=== PATIENT | male | born 1995 | race Two or more races ===

== ENCOUNTER 2017-07-11 03:06 | Inpatient (IN) | payer BC ==
[2017-07-11] MEDS ORDERED: Sodium Chloride 0.9% 1,000 ML IV ONE ×2 (03:36→04:53)
[2017-07-11 04:17] LABS: CHLORIDE,CL 102 mmol/L (101-111); SODIUM,NA 138 mmol/L (135-145)
--- NOTE | 2017-07-11 04:49 | EDM.PDOC ---
ED HPI GENERAL MEDICAL PROBLEM - General Chief Complaint: Fever Stated Complaint: FEVER [id number] Time Seen by Provider: 07/11/17 04:00 Source of Information: Reports: Patient History Limitations: Reports: No Limitations - History of Present Illness INITIAL COMMENTS - FREE TEXT/NARRATIVE: This 22 yo male patient reports to the ED with a 2 day history of fever, not feeling well, a headache and low back pain. The patient reports he took ibuprofen about 30 minutes prior to coming to the ED. The patient reports he has a history of elevated liver functions. 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 [No Known Home Meds] 07/11/17 [History] Past Medical History - Past Health History Medical/Surgical History: Denies Medical/Surgical History Social & Family History - Family History Family Medical History: Noncontributory - Tobacco Use Smoking Status *Q: Never Smoker - Caffeine Use Caffeine Use: Reports: Coffee, Soda - Recreational Drug Use Recreational Drug Use: No ED ROS GENERAL - Review of Systems Review Of Systems: ROS reveals no pertinent complaints other than HPI. ED EXAM, GENERAL - Physical Exam Exam: See Below Exam Limited By: No Limitations General Appearance: Alert, WD/WN, Moderate Distress Eye Exam: Bilateral Eye: EOMI, Normal Inspection, PERRL Ears: Normal External Exam, Normal Canal, Hearing Grossly Normal, Normal TMs Nose: Normal Inspection, Normal Mucosa, No Blood Throat/Mouth: Normal Inspection, Normal Lips, Normal Teeth, Normal Gums, Normal Oropharynx, Normal Voice, No Airway Compromise Head: Atraumatic, Normocephalic Neck: Normal Inspection, Supple, Non-Tender, Full Range of Motion Respiratory/Chest: No Respiratory Distress, Lungs Clear, Normal Breath Sounds, No Accessory Muscle Use, Chest Non-Tender Cardiovascular: Normal Peripheral Pulses, Regular Rate, Rhythm, No Edema, No Gallop, No JVD, No Murmur, No Rub GI/Abdominal: Normal Bowel Sounds, Soft, Non-Tender, No Organomegaly, No Distention, No Abnormal Bruit, No Mass (Male) Exam: Deferred Rectal (Males) Exam: Deferred Back Exam: Paraspinal Tenderness Extremities: Normal Inspection, Normal Range of Motion, Non-Tender, Normal Capillary Refill, No Pedal Edema Neurological: Alert, Oriented, CN II-XII Intact, Normal Cognition, Normal Gait, Normal Reflexes, No Motor/Sensory Deficits Psychiatric: Normal Affect, Normal Mood Skin Exam: Warm, Dry, Intact, Normal Color, No Rash Lymphatic: No Adenopathy Course - Vital Signs Last Recorded V/S: Last Vital Signs Temp 38.1 C 07/11/17 03:12 Pulse 117 H 07/11/17 03:12 Resp 18 07/11/17 03:12 BP 108/80 07/11/17 03:12 Pulse Ox 97 07/11/17 03:12 - Orders/Labs/Meds Orders: Active Orders 24 hr Category Date Time Status CHLAMYDIA TRACHOMATIS/GC AMPLF Urgent Lab 07/11/17 03:37 Received CULTURE STREP A CONFIRMATION [RM] Stat Lab 07/11/17 03:42 Results STREP SCRN A RAPID W CULT CONF [RM] Stat Lab 07/11/17 03:42 Results [place] VIRUS IGM [REF] Urgent Lab 07/11/17 03:45 Received Labs: Laboratory Tests 07/11/17 07/11/17 07/11/17 Range/Units 03:37 03:45 03:45 WBC 7.7 (5.0-10.0) 10^3/uL RBC 4.93 (4.6-6.2) 10^6/uL Hgb 14.4 (14.0-18.0) g/dL Hct 41.8 (40.0-54.0) % MCV 84.8 (80-100) fL MCH 29.2 (27.0-34.0) pg MCHC 34.4 (33.0-35.0) g/dL Plt Count 128 L (150-450) 10^3/uL Neut % (Auto) 36.4 L (42.2-75.2) % Lymph % (Auto) 46.0 (20.5-50.1) % [place] % (Auto) 13.8 H (2-8) % Eos % (Auto) 2.8 (1.0-3.0) % Baso % (Auto) 1.0 (0.0-1.0) % Sodium 138 (135-145) mmol/L Potassium 4.0 (3.6-5.0) mmol/L Chloride 102 (101-111) mmol/L Carbon Dioxide 24.0 (21.0-31.0) mmol/L Anion Gap 16.0 BUN 9 (7-18) mg/dL Creatinine 0.9 (0.6-1.3) mg/dL Est Cr Clr Drug Dosing 123.90 mL/min Estimated GFR (MDRD) > 60 BUN/Creatinine Ratio 10.00 Glucose 135 H (74-105) mg/dL Calcium 8.7 (8.4-10.2) mg/dl Total Bilirubin 1.4 H (0.2-1.0) mg/dL AST 666 H (10-42) IU/L ALT 512 H (10-60) IU/L Alkaline Phosphatase 115 (42-121) IU/L Total Protein 7.1 (6.7-8.2) g/dl Albumin 4.2 (3.2-5.5) g/dl Globulin 2.9 Albumin/Globulin Ratio 1.45 Urine Color Yellow (YELLOW) Urine Appearance Clear (CLEAR) Urine pH 8.5 (5.0-9.0) Ur Specific [place] 1.015 (1.005-1.030) Urine Protein 100 H (NEGATIVE) Urine Glucose (UA) Negative (NEGATIVE) Urine Ketones Trace H (NEGATIVE) Urine Occult Blood Negative (NEGATIVE) Urine Nitrite Negative (NEGATIVE) Urine Bilirubin Small H (NEGATIVE) Urine Urobilinogen >=8.0 H (0.2-1.0) mg/dL Ur Leukocyte Esterase Negative (NEGATIVE) Urine RBC 0-5 /HPF Urine WBC 0-5 (0-5/HPF) /HPF Ur Epithelial Cells Few /HPF Amorphous Sediment Few (0/HPF) /HPF Urine Bacteria Moderate H (0-FEW/HPF) /HPF Urine Mucus Moderate H /LPF Monoscreen Positive Meds: Medications Discontinued Medications Generic Name Dose Route Start Last Admin Trade Name Freq PRN Reason Stop Dose Admin Sodium Chloride 1,000 mls @ 999 mls/hr 07/11/17 03:36 07/11/17 03:55 Normal Saline IV 07/11/17 04:36 999 mls/hr .BOLUS ONE Administration Departure - Departure Time of Disposition: 04:50 Disposition: Admitted As Inpatient 66 Condition: Fair Clinical Impression: Mononucleosis syndrome - Discharge Information Instructions: Infectious Mononucleosis Care Plan Goals: Discussed the examination, history, lab and treatment with Dr. Bragg. Dr. Bragg accepted the patient for continued evaluation and further management. - My Orders Last 24 Hours: My Active Orders 07/11/17 03:37 CHLAMYDIA TRACHOMATIS/GC AMPLF Urgent 07/11/17 03:42 CULTURE STREP A CONFIRMATION [RM] Stat STREP SCRN A RAPID W CULT CONF [RM] Stat 07/11/17 03:45 [place] VIRUS IGM [REF] Urgent - Assessment/Plan Last 24 Hours: My Active Orders 07/11/17 03:37 CHLAMYDIA TRACHOMATIS/GC AMPLF Urgent 07/11/17 03:42 CULTURE STREP A CONFIRMATION [RM] Stat STREP SCRN A RAPID W CULT CONF [RM] Stat 07/11/17 03:45 [place] VIRUS IGM [REF] Urgent
[2017-07-11] MEDS ORDERED: Morphine 2 MG/ML Syringe IVPUSH ONE (04:53)
[2017-07-11] MEDS ORDERED: methylPREDNISolone Sodium Succinate 125 MG/2 ML SDV IVPUSH ONE (04:53)
[2017-07-11] MEDS ORDERED: Ondansetron 4 MG/2 ML SDV IVPUSH PRN (08:26)
[2017-07-11] MEDS ORDERED: Polyethylene Glycol 3350 Powder 17 GM Packet PO PRN (08:26)
[2017-07-11] MEDS ORDERED: Zolpidem 5 MG Tab PO PRN (08:26)
[2017-07-11] MEDS: Sodium Chloride 0.9% 1,000 ML IV SCH ×2 (09:47→19:37)
[2017-07-11] MEDS: Morphine 2 MG/ML Syringe IVPUSH PRN ×2 (09:47→17:18)
[2017-07-11] MEDS: Ketorolac 30 MG/ML SDV IVPUSH PRN ×2 (12:47→20:44)
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
[2017-07-11] MEDS: methylPREDNISolone Sodium Succinate 125 MG/2 ML SDV IVPUSH SCH (17:08)
[2017-07-12] MEDS: Morphine 2 MG/ML Syringe IVPUSH PRN ×2 (02:52→08:35)
[2017-07-12] MEDS: methylPREDNISolone Sodium Succinate 125 MG/2 ML SDV IVPUSH SCH ×2 (05:20→17:36)
[2017-07-12 07:03] LABS: CHLORIDE,CL 106 mmol/L (101-111); SODIUM,NA 140 mmol/L (135-145)
[2017-07-12] MEDS: Sodium Chloride 0.9% 1,000 ML IV SCH (07:17)
[2017-07-12] MEDS: Ketorolac 30 MG/ML SDV IVPUSH PRN (07:33)
--- NOTE | 2017-07-12 11:17 | PCM.PN ---
- General Info Admission Dx/Problem (Free Text): Admission Diagnosis/Problem Admission Diagnosis/Problem Mononucleosis syndrome Subjective Update: He is feeling better today, No nausea or vomiting, appetite is good. No abdominal pain, No diarrhea, flank pain ,chest pain or shortness of breath. He denied cough or any sputum production Functional Status: Reports: Pain Controlled, Tolerating Diet, Ambulating, Urinating - Review of Systems General: Reports: Appetite (good). Denies: Fever, Chills HEENT: Denies: Headaches, Post Nasal Drip, Sinus Congestion, Sore Throat, Visual Changes Pulmonary: Denies: Shortness of Breath, Pleuritic Chest Pain, Cough, Wheezing Cardiovascular: Denies: Chest Pain, Dyspnea on Exertion, Lightheadedness Gastrointestinal: Denies: Abdominal Pain, Diarrhea, Nausea, Vomiting Genitourinary: Denies: Dysuria, Frequency, Burning, Flank Pain Musculoskeletal: Denies: Neck Pain, Shoulder Pain, Back Pain Skin: Denies: Jaundice, Dryness, Bruising, Pruritis, Rash Neurological: Denies: Headache, Tingling, Tremors Psychiatric: Reports: No Symptoms - Patient Data Vitals - Most Recent: Last Vital Signs Temp 36.3 C 07/12/17 07:00 Pulse 79 07/12/17 07:00 Resp 20 07/12/17 07:00 BP 98/45 L 07/12/17 07:00 Pulse Ox 98 07/12/17 07:00 Weight - Most Recent: 68.765 kg I&O - Last 24 Hours: Intake & Output 07/11/17 07/12/17 07/12/17 22:59 06:59 14:59 Intake Total 978 901 Balance 978 901 Lab Results Last 24 Hours: Laboratory Results - last 24 hr 07/12/17 07/12/17 07/12/17 Range/Units 06:20 06:20 06:20 WBC 10.8 H (5.0-10.0) 10^3/uL RBC 4.43 L (4.6-6.2) 10^6/uL Hgb 12.9 L (14.0-18.0) g/dL Hct 37.7 L (40.0-54.0) % MCV 85.1 (80-100) fL MCH 29.1 (27.0-34.0) pg MCHC 34.2 (33.0-35.0) g/dL Plt Count 135 L (150-450) 10^3/uL Neut % (Auto) 54.0 (42.2-75.2) % Lymph % (Auto) 36.1 (20.5-50.1) % [place] % (Auto) 9.7 H (2-8) % Eos % (Auto) 0.0 L (1.0-3.0) % Baso % (Auto) 0.2 (0.0-1.0) % Sodium 140 (135-145) mmol/L Potassium 4.3 (3.6-5.0) mmol/L Chloride 106 (101-111) mmol/L Carbon Dioxide 24.0 (21.0-31.0) mmol/L Anion Gap 14.3 BUN 6 L (7-18) mg/dL Creatinine 0.6 (0.6-1.3) mg/dL Est Cr Clr Drug Dosing 187.83 mL/min Estimated GFR (MDRD) > 60 BUN/Creatinine Ratio 10.00 Glucose 132 H (74-105) mg/dL Lactic Acid 1.2 (0.5-2.2) mmol/L Calcium 8.2 L (8.4-10.2) mg/dl Total Bilirubin 0.8 (0.2-1.0) mg/dL AST 193 H (10-42) IU/L ALT 426 H (10-60) IU/L Alkaline Phosphatase 95 (42-121) IU/L Total Protein 6.4 L (6.7-8.2) g/dl Albumin 3.5 (3.2-5.5) g/dl Globulin 2.9 Albumin/Globulin Ratio 1.21 Colt Results Last 24 Hours: Microbiology 07/11/17 09:02 Aerobic Blood Culture - Preliminary Blood - Venous - Lab Draw NO GROWTH AFTER 1 DAY Anaerobic Blood Culture - Preliminary NO GROWTH AFTER 1 DAY 07/11/17 09:00 Aerobic Blood Culture - Preliminary Blood - Venous NO GROWTH AFTER 1 DAY Anaerobic Blood Culture - Preliminary NO GROWTH AFTER 1 DAY Med Orders - Current: Current Medications Ketorolac Tromethamine (Toradol) 30 mg IVPUSH Q6H PRN PRN Reason: Pain (Moderate 4-10), fever Last Admin: 07/12/17 07:33 Dose: 30 mg Methylprednisolone Sodium Succinate (Solu-Medrol) 125 mg IVPUSH Q12H [facility] Last Admin: 07/12/17 05:20 Dose: 125 mg Morphine Sulfate (Morphine) 2 mg IVPUSH Q4H PRN PRN Reason: Pain (severe 7-10) Last Admin: 07/12/17 08:35 Dose: 2 mg Ondansetron HCl (Zofran) 4 mg IVPUSH Q6H PRN PRN Reason: Nausea/Vomiting Polyethylene Glycol (Miralax) 17 gm PO DAILY PRN PRN Reason: Constipation Zolpidem Tartrate (Ambien) 5 mg PO BEDTIME PRN PRN Reason: Sleep Discontinued Medications Sodium Chloride (Normal Saline) 1,000 mls @ 999 mls/hr IV .BOLUS ONE Stop: 07/11/17 04:36 Last Admin: 07/11/17 03:55 Dose: 999 mls/hr Sodium Chloride (Normal Saline) 1,000 mls @ 999 mls/hr IV .BOLUS ONE Stop: 07/11/17 05:53 Last Admin: 07/11/17 05:00 Dose: 999 mls/hr Sodium Chloride (Normal Saline) 1,000 mls @ 100 mls/hr IV ASDIRECTED [facility] Stop: 07/12/17 08:31 Last Admin: 07/12/17 07:17 Dose: 100 mls/hr Methylprednisolone Sodium Succinate (Solu-Medrol) 125 mg IVPUSH ONETIME ONE Stop: 07/11/17 04:54 Last Admin: 07/11/17 05:04 Dose: 125 mg Morphine Sulfate (Morphine) 2 mg IVPUSH ONETIME ONE Stop: 07/11/17 04:54 Last Admin: 07/11/17 05:00 Dose: 2 mg - Exam Quality Assessment: DVT Prophylaxis. No: Supplemental Oxygen, Urine Catheter General: Alert, Oriented, Cooperative, No Acute Distress HEENT: Pupils Equal, Mucous Membr. Moist/[place] Neck: Supple, No JVD Lungs: Clear to Auscultation, Normal Respiratory Effort Cardiovascular: Regular Rate, Regular Rhythm GI/Abdominal Exam: Normal Bowel Sounds, Non-Tender, No Distention. No: Guarding , Rigid, Rebound, Hepatomegaly, Splenomegaly (Male) Exam: Deferred Back Exam: Normal Inspection, Full Range of Motion. No: CVA Tenderness (R) Extremities: Normal Inspection, No Pedal Edema Skin: Warm, Dry, Intact Neurological: No New Focal Deficit Psy/Mental Status: Alert, Normal Affect, Normal Mood - Problem List Review Problem List Initiated/Reviewed/Updated: Yes - Plan Plan:: Assessment and plan 22-year-old male without significant past medical history presented with viral illness symptoms consistent with mononucleosis. Patient felt better after fluid resuscitation and IV steroids. Now his headache is resolved and today he is felling much better. Probable sepsis, most likely viral from mononucleosis Patient has received fluid druze and encouraged him to eat and drink well Will stop IV fluid Rapid influenza and rapid strep test are negative 2 sets of blood cultures done, no growth yet Acute hepatitis panel, chlamydia and gonorrhea, West Nile virus IgM ordered Mononucleosis syndrome Swisher test is positive Supportive treatment Patient received IV fluid Will continue Solu-Medrol 125 mg twice a day. This can be stopped when patient started feeling better in the next 2-3 days Ultrasound of the spleen reported mild prominence of the spleen measuring 11.5 x 4.6 x 6.6 cm Elevated Transaminitis, possible hepatitis from mononucleosis - Acute hepatitis panel ordered as well - Continue to Monitor liver enzymes, it's improving - No reported liver enlargement on ultrasound LUCINDA faulkner and SCDs for DVT prophylaxis Start Protonix for GI prophylaxis ( on steroid) He is full code
[2017-07-12] MEDS: Pantoprazole 40 MG Tab.CR PO SCH (12:23)
[2017-07-12] MEDS ORDERED: traMADol 50 MG Tab PO PRN (16:38)
[2017-07-13] MEDS: methylPREDNISolone Sodium Succinate 125 MG/2 ML SDV IVPUSH SCH (05:26)
[2017-07-13] MEDS: Pantoprazole 40 MG Tab.CR PO SCH (05:26)
[2017-07-13 07:06] LABS: CHLORIDE,CL 105 mmol/L (101-111); SODIUM,NA 140 mmol/L (135-145)
--- NOTE | 2017-07-13 12:27 | PCM.PN ---
- General Info Date of Service: 07/13/17 Admission Dx/Problem (Free Text): Admission Diagnosis/Problem Admission Diagnosis/Problem Mononucleosis syndrome Subjective Update: He is feeling better today, No nausea or vomiting, appetite is good. No abdominal pain, No diarrhea, flank pain ,chest pain or shortness of breath. He denied cough or any sputum production Functional Status: Reports: Pain Controlled, Tolerating Diet, Ambulating, Urinating - Review of Systems General: Reports: Appetite (good). Denies: Fever, Chills HEENT: Denies: Headaches, Sinus Congestion, Sore Throat, Visual Changes Pulmonary: Denies: Shortness of Breath, Pleuritic Chest Pain, Cough, Sputum, Wheezing Cardiovascular: Denies: Chest Pain, Dyspnea on Exertion, Edema, Lightheadedness Gastrointestinal: Denies: Abdominal Pain, Diarrhea, Nausea, Vomiting Genitourinary: Denies: Dysuria, Frequency, Burning, Flank Pain Musculoskeletal: Denies: Neck Pain, Back Pain, Leg Pain, Joint Pain Skin: Denies: Jaundice, Bruising, Pruritis, Rash Neurological: Reports: No Symptoms Psychiatric: Reports: No Symptoms - Patient Data Vitals - Most Recent: Last Vital Signs Temp 36.9 C 07/13/17 10:37 Pulse 75 07/13/17 10:37 Resp 20 07/13/17 10:37 BP 125/65 07/13/17 10:37 Pulse Ox 98 07/13/17 10:37 Weight - Most Recent: 68.765 kg I&O - Last 24 Hours: Intake & Output 07/12/17 07/13/17 07/13/17 22:59 06:59 14:59 Intake Total 1991 500 400 Balance 1991 500 400 Lab Results Last 24 Hours: Laboratory Results - last 24 hr 07/13/17 Range/Units 05:55 Sodium 140 (135-145) mmol/L Potassium 4.2 (3.6-5.0) mmol/L Chloride 105 (101-111) mmol/L Carbon Dioxide 26.0 (21.0-31.0) mmol/L Anion Gap 13.2 BUN 8 (7-18) mg/dL Creatinine 0.6 (0.6-1.3) mg/dL Est Cr Clr Drug Dosing 187.83 mL/min Estimated GFR (MDRD) > 60 BUN/Creatinine Ratio 13.33 Glucose 133 H (74-105) mg/dL Calcium 8.5 (8.4-10.2) mg/dl Total Bilirubin 0.5 (0.2-1.0) mg/dL AST 87 H (10-42) IU/L ALT 342 H (10-60) IU/L Alkaline Phosphatase 85 (42-121) IU/L Total Protein 6.7 (6.7-8.2) g/dl Albumin 3.5 (3.2-5.5) g/dl Globulin 3.2 Albumin/Globulin Ratio 1.09 Colt Results Last 24 Hours: Microbiology 07/11/17 09:02 Aerobic Blood Culture - Preliminary Blood - Venous - Lab Draw NO GROWTH AFTER 2 DAYS Anaerobic Blood Culture - Preliminary NO GROWTH AFTER 2 DAYS 07/11/17 09:00 Aerobic Blood Culture - Preliminary Blood - Venous NO GROWTH AFTER 2 DAYS Anaerobic Blood Culture - Preliminary NO GROWTH AFTER 2 DAYS Med Orders - Current: Current Medications Methylprednisolone Sodium Succinate (Solu-Medrol) 40 mg IVPUSH Q12H REBECA Morphine Sulfate (Morphine) 2 mg IVPUSH Q4H PRN PRN Reason: Pain (severe 7-10) Last Admin: 07/12/17 08:35 Dose: 2 mg Ondansetron HCl (Zofran) 4 mg IVPUSH Q6H PRN PRN Reason: Nausea/Vomiting Pantoprazole Sodium (Protonix) 40 mg PO ACBREAKFAST REBECA Last Admin: 07/13/17 05:26 Dose: 40 mg Polyethylene Glycol (Miralax) 17 gm PO DAILY PRN PRN Reason: Constipation Tramadol HCl (Ultram) 50 mg PO Q4H PRN PRN Reason: Pain Last Admin: 07/12/17 21:16 Dose: 50 mg Zolpidem Tartrate (Ambien) 5 mg PO BEDTIME PRN PRN Reason: Sleep Discontinued Medications Sodium Chloride (Normal Saline) 1,000 mls @ 999 mls/hr IV .BOLUS ONE Stop: 07/11/17 04:36 Last Admin: 07/11/17 03:55 Dose: 999 mls/hr Sodium Chloride (Normal Saline) 1,000 mls @ 999 mls/hr IV .BOLUS ONE Stop: 07/11/17 05:53 Last Admin: 07/11/17 05:00 Dose: 999 mls/hr Sodium Chloride (Normal Saline) 1,000 mls @ 100 mls/hr IV ASDIRECTED [facility] Stop: 07/12/17 08:31 Last Admin: 07/12/17 07:17 Dose: 100 mls/hr Ketorolac Tromethamine (Toradol) 30 mg IVPUSH Q6H PRN PRN Reason: Pain (Moderate 4-10), fever Last Admin: 07/12/17 07:33 Dose: 30 mg Methylprednisolone Sodium Succinate (Solu-Medrol) 125 mg IVPUSH ONETIME ONE Stop: 07/11/17 04:54 Last Admin: 07/11/17 05:04 Dose: 125 mg Methylprednisolone Sodium Succinate (Solu-Medrol) 125 mg IVPUSH Q12H [facility] Last Admin: 07/13/17 05:26 Dose: 125 mg Morphine Sulfate (Morphine) 2 mg IVPUSH ONETIME ONE Stop: 07/11/17 04:54 Last Admin: 07/11/17 05:00 Dose: 2 mg - Exam Quality Assessment: DVT Prophylaxis. No: Supplemental Oxygen, Urine Catheter General: Alert, Oriented, Cooperative, No Acute Distress HEENT: Pupils Equal, EOMI, Mucous Membr. Moist/[place] Neck: Supple. No: No Thyromegaly, Lymphadenopathy Lungs: Clear to Auscultation, Normal Respiratory Effort. No: Crackles, Wheezing Cardiovascular: Regular Rate, Regular Rhythm, No Murmurs GI/Abdominal Exam: Normal Bowel Sounds, Soft, Non-Tender, No Organomegaly, No Distention. No: Guarding, Rebound (Male) Exam: Deferred Back Exam: Normal Inspection, Full Range of Motion Extremities: Normal Inspection, Normal Range of Motion, No Pedal Edema Skin: Warm, Dry, Intact Neurological: No New Focal Deficit Psy/Mental Status: Alert, Normal Affect, Normal Mood - Problem List Review Problem List Initiated/Reviewed/Updated: Yes - My Orders Last 24 Hours: My Active Orders 07/12/17 11:30 Pantoprazole [ProTONIX] 40 mg PO ACBREAKFAST 07/12/17 16:38 traMADol [Ultram] 50 mg PO Q4H PRN 07/13/17 17:00 methylPREDNISolone Sod Succ [Solu-MEDROL] 40 mg IVPUSH Q12H - Plan Plan:: Assessment and plan 22-year-old male without significant past medical history presented with viral illness symptoms consistent with mononucleosis. Patient felt better after fluid resuscitation and IV steroids. Now his headache is resolved and today he is felling much better. Probable sepsis, most likely viral from mononucleosis Patient has received fluid synagogue and encouraged him to eat and drink well Rapid influenza and rapid strep test are negative 2 sets of blood cultures done, no growth yet Acute hepatitis panel, chlamydia and gonorrhea, West Nile virus IgM ordered ( not available yet) -Will decrease Slumedrol to 40 mg IV q12 hrs [ was at 125 mg IV q12 hrs) -He needs prednisone tapering and likely can go home with oral prednisone tapering Mononucleosis syndrome [place] test is positive Supportive treatment Patient received IV fluid Will Decrease Solu-Medrol to 40 mg IV q12 hrs [ was at 125 mg twice a day.] =Will need prednisone tapering and can go home tomorrow with oral prednisone tapering Ultrasound of the spleen reported mild prominence of the spleen measuring 11.5 x 4.6 x 6.6 cm Elevated Transaminitis, possible hepatitis from mononucleosis - Acute hepatitis panel ordered as well - Continue to Monitor liver enzymes, it's improving - No reported liver enlargement on ultrasound LUCINDA faulkner and SCDs for DVT prophylaxis - Continue Protonix for GI prophylaxis ( on steroid) He is full code
[2017-07-13] MEDS: methylPREDNISolone Sodium Succinate 40 MG/1 ML SDV IVPUSH SCH (19:48)
[2017-07-14] MEDS: methylPREDNISolone Sodium Succinate 40 MG/1 ML SDV IVPUSH SCH (05:34)
[2017-07-14] MEDS: Pantoprazole 40 MG Tab.CR PO SCH (05:36)
[2017-07-14 07:05] LABS: CHLORIDE,CL 101 mmol/L (101-111); SODIUM,NA 138 mmol/L (135-145)
[2017-07-14 07:27] VITALS: BP 91/49
--- NOTE | 2017-07-21 09:02 | DISCH ---
DISCHARGE DIAGNOSES: 1. Acute infectious mononucleosis syndrome. 2. Mild prominence of the spleen. 3. Mild thrombocytopenia, resolved. 4. Abnormal LFTs, improving. 5. Negative acute hepatitis profile. BRIEF HISTORY OF PRESENT ILLNESS: Edgar Carney is a 22-year-old male, who was seen in clinic on the day prior to admission. He had presented to clinic with fever and back pain. Lab work performed at the clinic, showed a minimal elevation of AST and ALT, and no other abnormalities, and he is basically told to rest and stay well hydrated. That same evening, he felt more ill. He had a temperature of 102. His head hurt with blurry vision. His back hurt. He called and spoke to this physician who reviewed his history. He had no sore throat. He has had hepatitis B shots in the past. He had no other known ill contacts. Further lab work was ordered for the following morning including mononucleosis screening, strep, swab of the throat, and acute hepatitis A, B and C panel. That evening, however, he became more ill. Temperature went up to 103 at home, and he came to the Emergency Department, was evaluated and then admitted. PERTINENT LABS AND X-RAYS: CBC showed a white count of 7.7, hemoglobin and hematocrit of 14 and 41.8 at admission, and 13.8 and 41 at discharge. Platelets were slightly decreased at 128,000 on admission, and had returned to 168,000 prior to discharge. Manual differential showed 27% neutrophils, 16% bands, 45% lymphocytes, 9%, monocytes on admission, and at discharge 45% neutrophils, 2% bands, 42% lymphocytes, and 11% monocytes. Baseline PT was within normal limits. Chemistry showed normal electrolytes. BUN and creatinine were 9 and 0.7 with a GFR of more than 60. Blood sugars were unremarkable. LFTs showed an admission AST of 666, and ALT of 512, and at discharge AST and ALT were 104 and 346 respectively. Total bilirubin was 1.4 on admission, 1.0 at discharge. Alkaline phosphatase was normal. Albumin was normal. C-reactive protein was elevated at 5.0. Urinalysis showed a clear yellow urine with a specific gravity of 1.015. There was an increase in urobilinogen and small amount of urine bilirubin. Microscopic was unremarkable with moderate bacteria and moderate mucus. Serology included urine for GC and chlamydia, which were not detected. Followup cultures for Chlamydia and gonorrhea were also not detected. West Nile IgM antibody was negative. Acute hepatitis profile was nonreactive for A, B, and C. [place] screen was positive. Two sets of blood cultures remain with no growth after 5 days. Rapid strep was negative and confirmation culture was also negative for group A strep. Nasal swabs were collected for influenza A and B and were negative. Urine culture showed mixed urogenital alyson of less than 10,000 CFUs/mL, and no further workup was done. An abdominal ultrasound was performed at the time of admission and showed mild prominence of the spleen which measured 11.5 x 4.6 x 6.6 cm. The liver measured 15.3 cm in sagittal dimension. HOSPITAL COURSE: Edgar was admitted as an acute inpatient with acute mononucleosis syndrome. He was started on IV fluids, normal saline, IV morphine was used for pain. He was given a loading dose of Solu-Medrol and then placed on a Solu-Medrol taper. IV Toradol was later used for pain in addition to the morphine. Review of his clinical data showed adequate fluids. He was voiding. His appetite slowly improved. On the day of discharge, he tolerated 100% of breakfast. Vital signs showed an admission of temperature 100.5. He gradually defervesced and was afebrile. Initial vital signs showed tachycardia with a heart rate of 117, and this also quickly reverted to normal with the administration of IV fluids. On day of discharge, he was lying comfortably in bed. He felt he was ready to be discharged to home. His headache had resolved. His body aches had also more or less resolved. He was feeling fatigued but improved. PHYSICAL EXAMINATION: Vital Signs: Blood pressure was 91/49. Blood pressure the prior evening was 115/67. Pulse 70 and regular, respiratory rate 20, oxygen saturation 100% on room air. He was afebrile. Weight 151 pounds, 9.6 ounces. Height 5 feet 9-1/2 inches. HEENT: Unremarkable. ENT was clear. Sclerae were nonicteric. Conjunctivae were not injected. Mouth showed moist mucous membranes. Neck: There was no cervical adenopathy. No thyromegaly. Chest: Showed clear bilateral breath sounds. Heart: Showed regular rate and rhythm. Abdomen: Soft and nontender to palpation over both the liver and spleen. No guarding. No rebound. No masses. Extremities: Showed no edema. The calves were soft and nontender. Neurologic: He is intact. IMPRESSION: A 22-year-old male presents with fever, tachycardia, and abnormal LFTs with a positive Monospot. He was admitted for acute mononucleosis syndrome. PLAN: Edgar was discharged to home. He will continue on a prednisone taper over the next few days. He should rest, stay well hydrated. Because of the prominence of the liver, we instructed him to avoid any strenuous activity. No heavy lifting. Diet should be usual diet as tolerated. A repeat ultrasound to re-evaluate the spleen with repeat labs will be performed on July 25. We did provide a letter to his employer, the [employer]. Edgar will be taking sick leave for the next week, and will have the repeat ultrasound prior to returning to duty and may still continue on light duty depending on the findings of the ultrasound. He should seek re-evaluation if he once again develops high fever, increasing pain, or any other symptoms of concern. CONDITION AT THE TIME OF DISCHARGE: Improved and stable. CODE STATUS DURING THIS ADMISSION: Full code. [facility] /[id number]
== END 2017-07-14 13:00 | disposition home or self-care (01) | DRG 720 ==
LOC: DL.ED 03:06 → DL.MS 05:02 → UNDOADMIN 05:02 → DL.MS 05:30
PROVIDERS: ADMIT Family Medicine; ATTEND Family Medicine
DX: A41.9 Sepsis, unspecified organism (principal); B27.90 Infectious mononucleosis, unspecified without complication; B19.9 Unspecified viral hepatitis without hepatic coma
CPT/HCPCS: 36415; 76705; 80053; 80074; 81001; 83605; 85025; 85610; 86140; 86308; 86788; 87040; 87081; 87086; 87430; 87491; 87591; 87804; 96361; 96374; 96375; 99284; A9270-GY; J1885; J2270; J2920; J2930; J7030

== ENCOUNTER 2018-01-31 12:41 | Emergency (ER) | payer BC ==
[2018-01-31 12:56] VITALS: BP 121/55
--- NOTE | 2018-01-31 13:57 | EDM.PDOC ---
ED HPI GENERAL MEDICAL PROBLEM - General Chief Complaint: Gastrointestinal Problem Stated Complaint: personal [id number] Time Seen by Provider: 01/31/18 13:45 Source of Information: Reports: Patient History Limitations: Reports: No Limitations - History of Present Illness INITIAL COMMENTS - FREE TEXT/NARRATIVE: This 23 yo male patient reports to the ED due to a loose stool with bright red blood in the stool. The patient reports he has been having very loose bowel movements since he had mono in June. The patient reports he had to have a bowel movement today and noticed that his had blood in the stool. The patient reports no similar symptoms in the past and no history of GI problems. The patient admits to drinking caffeine, energy drinks and chewing tobacco. The patient reports he may be experiencing increased stress due to expecting a baby soon along with stressful work. Onset: Today Duration: Constant Location: Reports: Abdomen Quality: Reports: Other Severity: Mild Improves with: Reports: None Worsens with: Reports: None Associated Symptoms: Reports: Other (diarrhea) - Related Data Allergies Allergy/AdvReac Type Severity Reaction Status Date / Time No Known Allergies Allergy Verified 01/31/18 12:56 Home Meds: Home Meds . [No Known Home Meds] 07/21/17 [History] Past Medical History - Past Health History Medical/Surgical History: Denies Medical/Surgical History HEENT History: Reports: None Cardiovascular History: Reports: None Respiratory History: Reports: None Gastrointestinal History: Reports: None Genitourinary History: Reports: None Musculoskeletal History: Reports: None Neurological History: Reports: None Psychiatric History: Reports: None Endocrine/Metabolic History: Reports: None Hematologic History: Reports: None Immunologic History: Reports: None Oncologic (Cancer) History: Reports: None Dermatologic History: Reports: None - Infectious Disease History Infectious Disease History: Reports: Chicken Pox, Mononucleosis - Past Surgical History Head Surgeries/Procedures: Reports: None Social & Family History - Family History Family Medical History: Noncontributory - Tobacco Use Smoking Status *Q: Never Smoker Years of Tobacco use: 3 Packs/Tins Daily: 0.5 Second Hand Smoke Exposure: No - Caffeine Use Caffeine Use: Reports: Coffee, Energy Drinks - Recreational Drug Use Recreational Drug Use: No ED ROS GENERAL - Review of Systems Review Of Systems: ROS reveals no pertinent complaints other than HPI. ED EXAM, GI/ABD - Physical Exam Exam: See Below Exam Limited By: No Limitations General Appearance: Alert, WD/WN, Moderate Distress Eyes: Bilateral: Normal Appearance, EOMI Ears: Normal External Exam, Normal Canal, Hearing Grossly Normal, Normal TMs Nose: Normal Inspection, Normal Mucosa, No Blood Throat/Mouth: Normal Inspection, Normal Lips, Normal Teeth, Normal Gums, Normal Oropharynx, Normal Voice, No Airway Compromise Head: Atraumatic, Normocephalic Neck: Normal Inspection, Supple, Non-Tender, Full Range of Motion Respiratory/Chest: No Respiratory Distress, Lungs Clear, Normal Breath Sounds, No Accessory Muscle Use, Chest Non-Tender Cardiovascular: Normal Peripheral Pulses, Regular Rate, Rhythm, No Edema, No Gallop, No JVD, No Murmur, No Rub GI/Abdominal Exam: Normal Bowel Sounds, Soft, Non-Tender, No Organomegaly, No Distention, No Abnormal Bruit, No Mass, Pelvis Stable (Male) Exam: Deferred Rectal (Males) Exam: Deferred Back Exam: Normal Inspection, Full Range of Motion, NT Extremities: Normal Inspection, Normal Range of Motion, Non-Tender, Normal Capillary Refill, No Pedal Edema Neurological: Alert, Oriented, CN II-XII Intact, Normal Cognition, Normal Gait, Normal Reflexes, No Motor/Sensory Deficits Psychiatric: Normal Affect, Normal Mood Skin Exam: Warm, Dry, Intact, Normal Color, No Rash Lymphatic: No Adenopathy Course - Vital Signs Last Recorded V/S: Last Vital Signs Temp 36.4 C 01/31/18 12:51 Pulse 70 01/31/18 12:51 Resp 16 01/31/18 12:51 BP 121/55 L 01/31/18 12:51 Pulse Ox 99 01/31/18 12:51 - Orders/Labs/Meds Orders: Active Orders 24 hr Category Date Time Status C DIFFICILE TOXIN BY PCR [MREF] Stat Lab 01/31/18 13:50 Ordered CULTURE STOOL [RM] Stat Lab 01/31/18 13:50 Ordered OVA & PARASITES BY IMMUNOASSAY [MREF] Stat Lab 01/31/18 13:50 Ordered Labs: Laboratory Tests 01/31/18 01/31/18 Range/Units 13:56 13:56 WBC 6.5 (5.0-10.0) 10^3/uL RBC 5.04 (4.6-6.2) 10^6/uL Hgb 14.8 (14.0-18.0) g/dL Hct 42.7 (40.0-54.0) % MCV 84.7 (80-100) fL MCH 29.4 (27.0-34.0) pg MCHC 34.7 (33.0-35.0) g/dL Plt Count 191 (150-450) 10^3/uL Neut % (Auto) 46.4 (42.2-75.2) % Lymph % (Auto) 39.0 (20.5-50.1) % Cecil % (Auto) 10.3 H (2-8) % Eos % (Auto) 3.7 H (1.0-3.0) % Baso % (Auto) 0.6 (0.0-1.0) % Sodium 138 (135-145) mmol/L Potassium 4.0 (3.6-5.0) mmol/L Chloride 102 (101-111) mmol/L Carbon Dioxide 28.0 (21.0-31.0) mmol/L Anion Gap 12.0 BUN 6 L (7-18) mg/dL Creatinine 0.8 (0.6-1.3) mg/dL Est Cr Clr Drug Dosing 143.61 mL/min Estimated GFR (MDRD) > 60 BUN/Creatinine Ratio 7.50 Glucose 87 (74-105) mg/dL Calcium 9.3 (8.4-10.2) mg/dl Total Bilirubin 1.7 H (0.2-1.0) mg/dL AST 28 (10-42) IU/L ALT 28 (10-60) IU/L Alkaline Phosphatase 34 L (42-121) IU/L Total Protein 7.1 (6.7-8.2) g/dl Albumin 4.5 (3.2-5.5) g/dl Globulin 2.6 Albumin/Globulin Ratio 1.73 Departure - Departure Time of Disposition: 14:44 Disposition: Home, Self-Care 01 Condition: Fair Clinical Impression: Gastritis Qualifiers: Gastritis type: unspecified gastritis Chronicity: acute Gastritis bleeding: with bleeding Qualified Code(s): K29.01 - Acute gastritis with bleeding - Discharge Information Instructions: Gastritis, Adult, [id number] Forms: ED Department Discharge Care Plan Goals: The patient was advised of the examination and lab results during the visit. The patient was discharged with a stool collection kit for the patient to collect a stool sample at home. The patient should return the stool sample to the [facility] lab after collection. If the patient has any additional symptoms or concerns, the patient should follow-up with her primary care facility or return to the emergency department. - My Orders Last 24 Hours: My Active Orders 01/31/18 13:50 C DIFFICILE TOXIN BY PCR [MREF] Stat CULTURE STOOL [RM] Stat OVA & PARASITES BY IMMUNOASSAY [MREF] Stat - Assessment/Plan Last 24 Hours: My Active Orders 01/31/18 13:50 C DIFFICILE TOXIN BY PCR [MREF] Stat CULTURE STOOL [RM] Stat OVA & PARASITES BY IMMUNOASSAY [MREF] Stat
[2018-01-31 14:22] LABS: CHLORIDE,CL 102 mmol/L (101-111); SODIUM,NA 138 mmol/L (135-145)
== END 2018-01-31 14:50 | disposition home or self-care (01) ==
LOC: DL.ED 12:41
DX: K29.01 Acute gastritis with bleeding (principal)
CPT/HCPCS: 36415; 80053; 85025; 99283

== ENCOUNTER 2018-12-28 08:06 | Emergency (ER) | payer BC ==
[2018-12-28] MEDS ORDERED: Ondansetron 4 MG/2 ML SDV IV ONE (08:22)
[2018-12-28] MEDS ORDERED: Sodium Chloride 0.9% 1,000 ML IV ONE ×2 (08:22→09:45)
--- NOTE | 2018-12-28 08:32 | EDM.PDOC ---
ED HPI GENERAL MEDICAL PROBLEM - General Chief Complaint: Gastrointestinal Problem Stated Complaint: SICK Time Seen by Provider: 12/28/18 08:27 Source of Information: Reports: Patient History Limitations: Reports: No Limitations - History of Present Illness INITIAL COMMENTS - FREE TEXT/NARRATIVE: woke up this am with vomiting & diarrhoea & upper abd pain. kids were sick but fine now . Left Upper Abdomen Pain Score (Numeric/FACES): 10 - Related Data Allergies Allergy/AdvReac Type Severity Reaction Status Date / Time No Known Allergies Allergy Verified 12/28/18 08:12 Home Meds: Home Meds . [No Known Home Meds] 07/21/17 [History] Past Medical History - Past Health History Medical/Surgical History: Denies Medical/Surgical History HEENT History: Reports: None Cardiovascular History: Reports: None Respiratory History: Reports: None Gastrointestinal History: Reports: None Other Gastrointestinal History: inflammed spleen Genitourinary History: Reports: None Musculoskeletal History: Reports: None Neurological History: Reports: None Psychiatric History: Reports: None Endocrine/Metabolic History: Reports: None Hematologic History: Reports: None Immunologic History: Reports: None Oncologic (Cancer) History: Reports: None Dermatologic History: Reports: None - Infectious Disease History Infectious Disease History: Reports: Chicken Pox, Mononucleosis - Past Surgical History Head Surgeries/Procedures: Reports: None Social & Family History - Family History Family Medical History: Noncontributory - Tobacco Use Smoking Status *Q: Never Smoker Second Hand Smoke Exposure: No - Caffeine Use Caffeine Use: Reports: Coffee, Energy Drinks - Recreational Drug Use Recreational Drug Use: No ED ROS GENERAL - Review of Systems Review Of Systems: ROS reveals no pertinent complaints other than HPI. ED EXAM, GI/ABD - Physical Exam Exam: See Below Exam Limited By: No Limitations General Appearance: Alert, WD/WN, Mild Distress, Active Emesis Ears: Hearing Grossly Normal Throat/Mouth: Normal Voice, No Airway Compromise Head: Atraumatic Neck: Non-Tender, Full Range of Motion Respiratory/Chest: No Respiratory Distress Cardiovascular: Regular Rate, Rhythm GI/Abdominal Exam: Tender, Other (epiG region, hyper BS). No: Distended, Guarding, Rigid, Rebound Neurological: Alert, Oriented, Normal Cognition, Normal Gait, No Motor/Sensory Deficits Psychiatric: Flat Affect, Tearful Skin Exam: Warm, Dry, Normal Color Lymphatic: No Adenopathy Course - Vital Signs Last Recorded V/S: Last Vital Signs Temp 37.4 C 12/28/18 08:09 Pulse 110 H 12/28/18 08:09 Resp 18 12/28/18 08:09 BP 117/73 12/28/18 08:09 Pulse Ox 95 12/28/18 08:09 - Orders/Labs/Meds Orders: Active Orders 24 hr Category Date Time Status CULTURE BLOOD [BC] Stat Lab 12/28/18 08:19 Received Sodium Chloride 0.9% [Normal Saline] 1,000 ml Med 12/28/18 09:45 Active IV .BOLUS Medication Orders Sodium Chloride (Normal Saline) 1,000 mls @ 999 mls/hr IV .BOLUS ONE Stop: 12/28/18 10:45 Last Admin: 12/28/18 09:51 Dose: 999 mls/hr Labs: Laboratory Tests 12/28/18 12/28/18 12/28/18 Range/Units 08:19 08:19 08:19 WBC 11.0 H (5.0-10.0) 10^3/uL RBC 5.55 (4.6-6.2) 10^6/uL Hgb 16.1 (14.0-18.0) g/dL Hct 46.6 (40.0-54.0) % MCV 84.0 (80-100) fL MCH 29.0 (27.0-34.0) pg MCHC 34.5 (33.0-35.0) g/dL Plt Count 207 (150-450) 10^3/uL Neut % (Auto) 85.2 H (42.2-75.2) % Lymph % (Auto) 6.2 L (20.5-50.1) % Dane % (Auto) 6.7 (2-8) % Eos % (Auto) 1.7 (1.0-3.0) % Baso % (Auto) 0.2 (0.0-1.0) % Sodium 138 (135-145) mmol/L Potassium 3.9 (3.6-5.0) mmol/L Chloride 103 (101-111) mmol/L Carbon Dioxide 24.0 (21.0-31.0) mmol/L Anion Gap 14.9 BUN 13 (7-18) mg/dL Creatinine 0.9 (0.6-1.3) mg/dL Est Cr Clr Drug Dosing 127.65 mL/min Estimated GFR (MDRD) > 60 BUN/Creatinine Ratio 14.44 Glucose 114 H (74-105) mg/dL Lactic Acid 0.8 (0.5-2.2) mmol/L Calcium 8.7 (8.4-10.2) mg/dl Total Bilirubin 1.6 H (0.2-1.0) mg/dL AST 53 H (10-42) IU/L ALT 80 H (10-60) IU/L Alkaline Phosphatase 58 (42-121) IU/L Total Protein 7.9 (6.7-8.2) g/dl Albumin 4.8 (3.2-5.5) g/dl Globulin 3.1 Albumin/Globulin Ratio 1.55 Meds: Medications Generic Name Dose Route Start Last Admin Trade Name Freq PRN Reason Stop Dose Admin Sodium Chloride 1,000 mls @ 999 mls/hr 12/28/18 09:45 12/28/18 09:51 Normal Saline IV 12/28/18 10:45 999 mls/hr .BOLUS ONE Administration Discontinued Medications Generic Name Dose Route Start Last Admin Trade Name Freq PRN Reason Stop Dose Admin Sodium Chloride 1,000 mls @ 999 mls/hr 12/28/18 08:22 12/28/18 08:28 Normal Saline IV 12/28/18 09:22 999 mls/hr .BOLUS ONE Administration Iopamidol 75 ml 12/28/18 08:42 12/28/18 08:50 Isovue-300 (61%) IVPUSH 12/28/18 08:43 75 ml ONETIME ONE Administration Ketorolac Tromethamine 30 mg 12/28/18 09:45 12/28/18 09:51 Toradol IVPUSH 12/28/18 09:46 30 mg ONETIME ONE Administration Ondansetron HCl 4 mg 12/28/18 08:22 12/28/18 08:28 Zofran IV 12/28/18 08:23 4 mg ONETIME ONE Administration - Re-Assessments/Exams Free Text/Narrative Re-Assessment/Exam: 12/28/18 09:48 results discussed wiht pt who is aware of elevated LFT and spleenomeg, denies xs etoh, states had mono long time ago and were told of his abn labs. 12/28/18 10:21 re-exam; s/p toradol sleeping arousable no c/o Departure - Departure Time of Disposition: 10:22 Disposition: Home, Self-Care 01 Condition: Good Clinical Impression: Gastroenteritis, Vomiting, Diarrhea - Discharge Information Instructions: Nausea and Vomiting, Adult, [id number] Forms: ED Department Discharge Additional Instructions: 1) avoid solid foods next 48 hours 2) have liquids 3) take tylenol or motrin as needed for fever and body aches 4) recheck if there is any change or concern rx given; bentyl 10mg bid prn x 6 zofran 4mg ODT bid prn x 6 imodium prn - My Orders Last 24 Hours: My Active Orders 12/28/18 08:19 CULTURE BLOOD [BC] Stat 12/28/18 09:45 Sodium Chloride 0.9% [Normal Saline] 1,000 ml IV .BOLUS - Assessment/Plan Last 24 Hours: My Active Orders 12/28/18 08:19 CULTURE BLOOD [BC] Stat 12/28/18 09:45 Sodium Chloride 0.9% [Normal Saline] 1,000 ml IV .BOLUS
[2018-12-28] MEDS ORDERED: Iopamidol 612 MG/ML 75 ML Bottle IVPUSH ONE (08:42)
[2018-12-28 09:02] LABS: ANION GAP 14.9; CHLORIDE,CL 103 mmol/L (101-111); SODIUM,NA 138 mmol/L (135-145)
--- NOTE | 2018-12-28 09:39 | CT ---
Clinical history: 23-year-old 165 pound male with abdominal pain (history "splenomegaly" i.e. spleen measured 11.0 x 5.4 x 6.0cm sonographically on 25 July 2017 which was nearly identical to measurements 11.5 x 4.5 x 6.6 cm 11 July 2017, after a bout with "mononucleosis"). Scan technique: Volume acquisition of data emergency CT scan of the abdomen and pelvis obtained without oral contrast but during the intravenous infusion 75 cc nonionic Isovue (3 cc/s via injector) while patient was lying supine on the Siemens multi slice scanner [place], [place]. All data archived in the PACS system for storage, reformatting axial/sagittal/coronal planes and study. Interpretation: Homogeneously fatty dense liver normal size anatomic configuration without discrete intrahepatic cystic or solid mass lesion. No abnormal dilatation of the intra or extrahepatic biliary ducts. Normal splenic size, anatomic configuration and homogeneous density. Spleen measures 11.0 cm L x 8.0 cm W x 6.0 cm AP diameter. No sign of splenic infarct, mass or subcapsular hematoma. (Specifically, no appreciable change since U/S exams) No abdominal or pelvic mass lesion and no sign of pelvic, mesenteric or retroperitoneal lymphadenopathy. Normal aorta. Normal appendix RLQ. No sign of mechanical bowel obstruction,, inflammatory "dirty" peritoneal fat, mechanical bowel obstruction, ascites or free intraperitoneal air. Lung bases clear. Normal lumbar spine. Gallbladder, stomach, pancreas, adrenal glands and kidneys anatomically correct. No sign of renal cortical mass lesion, nephrolithiasis or obstructive uropathy. Symmetrically distended normal urinary bladder. Prostate gland and seminal vesicles unremarkable. CONCLUSION:: Fatty liver. Normal spleen. No acute peritonitis and CT scan abdomen/pelvis otherwise unremarkable.
[2018-12-28] MEDS ORDERED: Ketorolac 30 MG/ML SDV IVPUSH ONE (09:45)
[2018-12-28 10:29] VITALS: BP 109/45
== END 2018-12-28 10:27 | disposition home or self-care (01) ==
LOC: DL.ED 08:06
DX: K52.9 Noninfective gastroenteritis and colitis, unspecified (principal)
CPT/HCPCS: 36415; 74177; 80053; 83605; 85025; 87040; 87804; 96361; 96374; 96375; 99284; J1885; J2405; J7030; Q9967